=== PATIENT | female | born 1985 | race Two or more races ===

== ENCOUNTER 2019-03-19 16:04 | Emergency (ER) | payer OTHER ==
[~2019-03-19] VITALS: Ht 162.6 cm; Wt 51.3 kg
--- NOTE | 2019-03-19 16:05 | NUR ---
Dr. Narayan at the bedside for MSE.
--- NOTE | 2019-03-19 17:05 | NUR ---
Patient discharged to home in stable conditon.Written and verbal after care instructions given. Patient verbalizes understanding of instructions.
== END 2019-03-19 17:05 | disposition home or self-care (01) ==
LOC: ER 16:08
DX: L03.211 Cellulitis of face (principal); Z88.1 Allergy status to other antibiotic agents
CPT/HCPCS: A4663

== ENCOUNTER 2019-04-07 17:51 | Emergency (ER) | payer OTHER ==
[~2019-04-07] VITALS: Ht 162.6 cm; Wt 51.7 kg
--- NOTE | 2019-04-07 19:12 | NUR ---
RECEIVED HAND OFF AND SBAR FROM OUTGOING [employer] PT JARRED LAMBERT X 2 UP, BED AT LOWEST POSITION. MONITORED ACCORDINGLY
[2019-04-07] MEDS ORDERED: IBUPROFEN 800 MG TABLET PO ONE (20:00)
--- NOTE | 2019-04-07 20:25 | NUR ---
Patient discharged to home in stable conditon. Written and verbal after care instructions given. Patient verbalizes understanding of instructions.
[2019-04-07] MEDS ORDERED: IBUPROFEN 800 MG TABLET ONE (20:29)
[2019-04-07 20:40] LABS: *URINE HCG, QUAL NEGATIVE (NEGATIVE)
--- NOTE | 2019-04-07 20:58 | NUR ---
VISUAL ACUITY DONE PT REPORTS PAIN ON OUTER CANTHUS OF LEFT EYE
[2019-04-07 22:48] VITALS: BP 127/73
== END 2019-04-07 20:25 | disposition home or self-care (01) ==
LOC: ER 17:59
DX: S16.1XXA Strain of muscle, fascia and tendon at neck level, initial encounter (principal); S39.012A Strain of muscle, fascia and tendon of lower back, initial encounter; F07.81 Postconcussional syndrome; V43.62XA Car passenger injured in collision with other type car in traffic accident, initial encounter; Y93.89 Activity, other specified; Y92.89 Other specified places as the place of occurrence of the external cause; Y99.8 Other external cause status
CPT/HCPCS: 70450; 72125; 72131; 84703; A4663

== ENCOUNTER 2023-06-24 14:48 | Emergency (ER) | payer OTHER ==
[~2023-06-24] VITALS: Ht 162.6 cm; Wt 56.7 kg
[2023-06-24 15:00] VITALS: O2SAT 100
[2023-06-24 15:25] LABS: *BILIRUBIN,URIN NEGATIVE (NEGATIVE); *BLOOD, URINE 3+ (NEGATIVE); *CLARITY,URINE SLIGHTLY CLOUDY (CLEAR); *COLOR,URINE YELLOW (YELLOW); *KETONES,URINE NEGATIVE (NEGATIVE); *PROTEIN,URINE NEGATIVE (NEGATIVE); *UROBILINOGEN,URINE 0.2 E.U./dl (NORMAL); LEUKOCYTE ESTERASE ,URINE NEGATIVE (NEGATIVE); NITRITE, URINE NEGATIVE (NEGATIVE); PH,URINE 5.5 (5.0-8.0); UGLUCOSE NEGATIVE (NEGATIVE)
[2023-06-24 15:27] LABS: *URINE HCG, QUAL NEGATIVE (NEGATIVE)
[2023-06-24 15:50] LABS: RED BLOOD CELL COUNT(AUTO) 4.14 MIL/uL (3.63-4.92); WHITE BLOOD COUNT (AUTO) 3.5 K/uL (3.8-11.8)
[2023-06-24 15:58] LABS: EOSINOPHILS # (AUTO) 0.1 K/uL (0.0-0.7); HEMATOCRIT 37.4 % (31.2-41.9); HEMOGLOBIN 12.3 g/dL (10.9-14.3); LYMPHOCYTES % (AUTO) 28.7 % (20.5-51.5); MEAN CORPUSCULAR HEMOGLOBIN 29.7 uug (24.7-32.8); MEAN CORPUSCULAR HGB CONC 33 g/dL (32.3-35.6); MEAN CORPUSCULAR VOLUME 90.5 fL (75.5-95.3); MONOCYTES # (AUTO) 0.3 K/uL (0.1-1.30); MONOCYTES % (AUTO) 7.8 % (0.0-11.0); NEUTROPHILS # (AUTO) 2.1 K/uL (1.8-8.9); NEUTROPHILS % (AUTO) 60.5 % (38.5-71.5); PLATELET COUNT (AUTO) 200 K/uL (179-408); RED CELL DISTRIBUTION WIDTH 13.1 % (12.3-17.7)
[2023-06-24 15:59] LABS: CALCIUM 8.9 mg/dL (8.5-10.1); CREATININE 0.7 mg/dL (0.6-1.3); POTASSIUM 3.8 mmol/L (3.5-5.1)
[2023-06-24 16:02] LABS: RBC,URINE 80-100 /HPF (0-3); WBC,URINE 0-3 /HPF (0-3)
[2023-06-24 16:03] LABS: BACTERIA,URINE MODERATE /HPF (NONE SEEN); SQUAMOUS EPITHELIAL CELL,UR MODERATE /HPF (NONE SEEN)
[2023-06-24 16:05] LABS: DIFFERENTIAL COMMENT 1
[2023-06-24] MEDS ORDERED: HYDR-3980 PO (17:08)
== END 2023-06-24 17:26 | disposition home or self-care (01) ==
LOC: ER 14:48
DX: R10.9 Unspecified abdominal pain (principal); Z79.899 Other long term (current) drug therapy
CPT/HCPCS: 36415; 84703; 85025; A4606; A4663